=== PATIENT | male | born 1945 | race Caucasian/White ===

== ENCOUNTER 2019-06-13 20:16 | Emergency (ER) | payer MEDICARE, OTHER, SELFPAY ==
[2019-06-13 20:17] VITALS: BP 162/73; PULSE 72; RESP 16; TEMP 36.7; O2SAT 96; BMI 31.3
--- NOTE | 2019-06-13 21:15 | CT_ITS ---
STUDY: CT CHEST WITHOUT CONTRAST REASON FOR EXAM: Male, 73 years old. Foreign body sensation. RADIATION DOSAGE (If Supplied By Facility): CTDIvol = ( 19.26 ) mGy, DLP = ( 1415.46 ) mGycm TECHNIQUE: Transaxial imaging was performed without the administration of intravenous contrast material. Multiplanar coronal and sagittal images were reformatted. The patient received oral contrast which can obscure radiopaque objects. Study was performed from the level of the pyriform sinuses to the level of the kidneys. The proximal hypopharynx and epiglottis are partially out of the field of view. Individualized dose optimization techniques were used for this CT. COMPARISON: None. FINDINGS: There is lower lobe bronchiectasis with atelectasis without focal infiltrate. There is no demonstrated pleural abnormality. Coronary calcifications. Normal mediastinum. Normal hilar regions. Normal unenhanced pulmonary arteries. There is atherosclerotic calcification of the aortic arch with tortuosity and elongation of the aortic arch and descending thoracic aorta. There are multi-level degenerative changes of the thoracic spine. At the level of T2-T3, there is a visualized protruding disc osteophyte within the canal with moderate central stenosis. There is contrast within the distal esophagus. There is contrast within the proximal stomach. There is a relatively decompressed minimally thick walled appearance of the esophagus. The partially visualized right renal cyst measuring 2.[address]/Chest without Contrast IMPRESSION: No visualized radiopaque foreign body. Coronary artery calcification. Mild thickening of the esophageal wall. Consider esophagitis. Electronically Signed: Orquidea Art MD at 21:49 EDT Tel , Service support ,
--- NOTE | 2019-06-13 22:07 | ED.VISSUMM ---
- ER Visit Summary Date of Service: 06/13/19 Chief Complaint: [Esophageal foreign body sensation] History of Present Illness: The patient is a 73 M [presents to the emergency department with complaint of foreign body sensation in his throat. Patient states he was eating chicken around 5 PM when he felt like something got stuck in his throat. Patient has some soreness when he swallows. Patient feels like the discomforts moved lower down into his chest. He denies any shortness of breath. He is able to swallow water. Patient is never had similar episode. Patient has history of hypertension, high cholesterol, obesity, and gout.] Physical Examination: [HEENT-PERRLA, EOMI. Cranial nerves II through XII grossly intact. TMs clear. Mucous membranes moist. No adenopathy. Cardiovascular-regular rate and rhythm without murmur or ectopy Lungs-clear to auscultation, chest wall stable without crepitus or subcu emphysema Abdomen-normoactive bowel sounds, soft, nontender, no rebound or rigidity, no peritoneal signs. Extremities-intact ?4, normal range of motion, normal pulses, atraumatic] Test Results: [CT scan with p.o. contrast of the chest obtained showed no evidence of esophageal foreign body or anything acute. There was no evidence of perforation of the esophagus.] Emergency Department Course and Treatment: [I discussed case with Dr. John Roy who is on for general surgery who asked me to obtain a CT scan with oral contrast of the esophagus. He did not feel the patient needed to have emergent endoscopy. He can see the patient in the office tomorrow morning.] Treatment Plan: [Follow-up with Dr. John Roy in the a.m.] Disposition: [Discharged to home in stable condition] Impression: [Foreign body sensation-esophageal] This note was generated with [employer] software. It may contain incorrect words, spelling, and punctuation that were not noted in review of the chart prior to signing ED Disposition - Plan for ED Patient: Referrals: Jac Vanegas III, MD [Primary Care Provider] -
--- NOTE | 2019-06-13 22:09 | ED.DEP ---
ED Disposition - Plan for ED Patient: Instructions: ESOPHAGEAL FOREIGN BODY, Resolved Referrals: Jac Vanegas III, MD [Primary Care Provider] - John Roy MD [STAFF PHYSICIAN] - 1 Day for another exam
[2019-06-13 22:30] VITALS: BP 152/87; PULSE 74; RESP 17; O2SAT 98
== END 2019-06-13 22:31 | disposition home or self-care (01) ==
LOC: ED 21:28
PROVIDERS: Emergency Provider Emergency Medicine; Family Provider Family Medicine; PCP Family Medicine
DX: R09.89 Other specified symptoms and signs involving the circulatory and respiratory systems (principal); E66.9 Obesity, unspecified; I10 Essential (primary) hypertension; E78.00 Pure hypercholesterolemia, unspecified; M10.9 Gout, unspecified; Z79.899 Other long term (current) drug therapy
CPT/HCPCS: 71250; 99282

== ENCOUNTER 2020-10-04 08:00 | Outpatient (RCR) | payer MEDICARE, OTHER, SELFPAY ==
[2020-07-24 09:44] VITALS: BMI 31.3
--- NOTE | 2020-09-20 08:10 | HP.PTEVAL_ITS ---
Patient's Visit Information TC LEE is a 74 year old M referred to Physical Therapy by Dr. Jac Vanegas III, MD with a diagnosis of R knee OA. Date of Evaluation: 09/20/20 Physical Therapist: Tacos Navarro DPT, OCS, CSCS - Visit Plan Frequency: 2x /Week Duration: 2-4 Weeks Plan: 2x/week for 2-4 weeks for. 1. rollout R quad and ensure stretching via HEP, includ hip flexor and HS. 2. Teach machine based hip and knee strength in gym as patient will cotninue there when PT completed. 3. MH if needed and ensure activitiy modification at home as needed. - Subjective Goes by [place]. R knee hurts when goes up and down steps for the last 6 months. Just has basement steps with rail at home, no falls. Gets stiff if he sits in car or in one position too long. HP workout 5 days/week, cardio 2 days and lifting and bike. Doesn't do leg machines. Does elliptica and bike and Nustep and feels OK with those. Sleep is OK, Stiff in am. Works out quick in the am. Retired. Hobbies include yard work and house work and he can still do those it just takes longer.. Basic ADLs are OK. - Pain R knee pain Pain Intensity (Out of 10): 0 Pain Intensity Range: 0, 6 Comment: steps wrost - Objective Walks I and without gait deviations, trasnfers I. Steps are reciprocal up and tends to turn sideways and use left to descend. SLS 5 seconds each leg. R knee crepitus with MMT and 4+/5 ext adn flexion symmetrical with L. Hip weak B abd and ext 3+ and flexion 4-, no pain. ankle strength 4+/5 without pain. Patella slightly stiff and painful laterally on R vs L minimaly. reflexes 2/3 patella and achilles. Sensation LE WNL to gross light touch. - bounce home L, - ant drawer L, Slight + l scour test at knee. quads max tight B, HS min tight at -20 90/90 test. - Goals Goal 1:: Patient able to ascend and descend steps reciprocal without rail wi thout deviations or increased pain. Goal Time Frame: 2-4 Weeks Goal 2:: Pt feel 50% better in overall R knee pain and stiffness. Goal Time Frame: 2-4 Weeks Goal 3:: I approp HEP to limit future problems(LE strength in gyma nd quad stretching) Goal Time Frame: 2-4 Weeks Goal 4:: LEFS65/80 LEFS Goal Time Frame: 2-4 Weeks - Rehabilitation Potential Physical Therapy Diagnosis: R knee OA Rehabilitation Potential: Fair - Anticipated Interventions Patient/Client Instruction: Educate patient on: Condition, Plan of Care For the Purpose of:: To decrease pain, To increase tolerance to activity/condition/position Therapeutic Exercise to Include: Strength training, Flexibilty training, Passive ROM, Active ROM For the Purpose of:: To decrease pain, To increase tolerance to activity/condition/position Manual Therapy Techniques to Include: Soft tissue mobilization For the Purpose of:: To decrease pain, To increase tolerance to activity/condition/position Thermo therapy (hot pack): Yes For the Purpose of:: To increase tolerance to activity/condition/position Thank you for the opportunity to evaluate your patient. For Medicare and Medicare HMO plans, please review the plan of care and approve it. It will need to be FAXED BACK to us at [phone] for Medicare purposes. For Medicare only, by signing this I certify the plan of care. Please let me know if there are questions or concerns regarding this plan of care. Physician Signature: Date:
--- NOTE | 2020-10-04 08:39 | HP.PTDCSUM_ITS ---
It has been my pleasure to treat TC LEE referred by Dr. Jac Vanegas III, MD, with the diagnosis of R knee OA for a total of 5 visit(s). Discharge Date: 10/04/20 Please see the following information for a summary of their discharge status. Subjective: Walking up steps better. No pain lately. No pain in a coule weeks. Feels like he cn handle ex in gym. Sleep well. R knee pain Pain Intensity (Out of 10): 0 % Improvement: 100 Objective/Function: Steps wwithout rail reciprocal without pain. Walks well. No evidence of pain. He is confident that he can continue himself. Goal 1:: Patient able to ascend and descend steps reciprocal without rail without deviations or increased pain. Goal Progress: Goal Met Goal 2:: Pt feel 50% better in overall R knee pain and stiffness. Goal Progress: Goal Met Goal 3:: I approp HEP to limit future problems(LE strength in gyma nd quad stretching) Goal Progress: Goal Met Goal 4:: LEFS65/80 LEFS Goal Progress: Goal Met Plan: Re-check immediately following todays session with Tacos Navarro DPT. 2x/w tolowa dee-ni' for 2-4 weeks for. 1. rollout R quad and ensure stretching via HEP, include hip flexor and HS. 2. Teach machine-based hip/knee strength in gym - will cotninue when PT completed. 3. MH if needed and ensure activitiy modification at home as needed. If there are questions or concerns regarding this patient's physical therapy, please feel free to call me at [phone]. Thank you for the referral of this patient. Sincerely, Tacos Navarro, DPT, OCS, CSCS
== END 2020-10-04 19:00 | disposition home or self-care (01) ==
LOC: PT 08:00
PROVIDERS: PCP Family Medicine; Referring Provider Family Medicine; Visit Provider Family Medicine
DX: M17.11 Unilateral primary osteoarthritis, right knee (principal)
CPT/HCPCS: 97110; 97161; 97164

== ENCOUNTER → 2025-07-30 | Outpatient (CLI) | payer MEDICARE, SELFPAY ==
--- NOTE | 2025-07-30 10:38 | RAD_ITS ---
PROCEDURE: WRIST MIN 3 VIEWS 07/30/2025 REASON FOR EXAM: WRIST PAIN TECHNIQUE: Procedure Code: RADWR Modality: DX Procedure: WRIST MIN 3 VIEWS Left wrist three views COMPARISON: None FINDINGS: The Scapholunate articulation is widened to 0.55 cm. There is severe osteoarthritis of the 1st carpometacarpal articulation and at the r moderate osteoarthritis adiocarpal articulation. No acute fracture or dislocation is identified. There is soft tissue swelling in the carpal region. There is no visible radiopaque foreign body. Osteopenia is noted. There is no visible atherosclerosis. RAD/Wrist min 3 Views IMPRESSION: The Scapholunate articulation is widened to 0.55 cm. There is severe osteoarthritis of the 1st carpometacarpal articulation and at t he r moderate osteoarthritis adiocarpal articulation. There is soft tissue swelling in the carpal region. Reading Location: [facility]
== END | disposition home or self-care (01) ==
LOC: MTRAD 10:38
PROVIDERS: PCP Family Medicine; Referring Provider Physician Assistant; Visit Provider Physician Assistant
DX: M25.532 Pain in left wrist (principal)
CPT/HCPCS: 73110